=== PATIENT | female | born 1985 | race Caucasian/White ===

== ENCOUNTER 2017-04-12 04:07 | Inpatient (IN) | payer BC ==
[2017-04-12] MEDS ORDERED: Oxytocin/0.9 % Sodium Chloride 30 UNIT/500 ML BAG ONE (04:31)
[2017-04-12] MEDS ORDERED: Lidocaine 1% 50 ML MDV ONE (04:32)
[2017-04-12] MEDS ORDERED: Clindamycin Phosphate in D5W 50 ML IV ONE (04:32)
[2017-04-12] MEDS ORDERED: Lidocaine 1% 50 ML MDV INJECT PRN (04:35)
[2017-04-12] MEDS ORDERED: Butorphanol 1 MG/ML SDV IVPUSH PRN (04:35)
[2017-04-12] MEDS ORDERED: Water For Irrigation,Sterile 1,000 ML Container IRR PRN (04:35)
[2017-04-12] MEDS ORDERED: Methylergonovine 0.2 MG/1 ML Amp IM PRN (04:35)
[2017-04-12] MEDS ORDERED: Misoprostol 200 MCG Tab PO PRN (04:35)
[2017-04-12] MEDS ORDERED: Nalbuphine 10 MG/1 ML Vial IVPUSH PRN (04:35)
[2017-04-12] MEDS ORDERED: Sodium Chloride 0.9% 10 ML Syringe FLUSH PRN (04:35)
[2017-04-12] MEDS ORDERED: Carboprost Tromethamine 250 MCG/1 ML Amp IM PRN (04:35)
[2017-04-12] MEDS ORDERED: Sodium Chloride 0.9% 2.5 ML Syringe FLUSH PRN (04:35)
[2017-04-12] MEDS ORDERED: Clindamycin Phosphate in D5W 900 MG in Premix Bag 1 BAG IV ONE ×2 (04:39)
[2017-04-12] MEDS ORDERED: Oxytocin/0.9 % Sodium Chloride 30 UNIT/500 ML BAG IV SCH (04:45)
[2017-04-12] MEDS ORDERED: Lactated Ringers 1,000 ML IV SCH (04:45)
[2017-04-12] MEDS ORDERED: oxyCODONE 5 MG Tab PO PRN (05:25)
[2017-04-12] MEDS ORDERED: Witch Hazel Medicated Pads 40/Jar TOP PRN (05:25)
[2017-04-12] MEDS ORDERED: Bisacodyl 10 MG Supp RECTAL PRN (05:25)
[2017-04-12] MEDS ORDERED: Acetaminophen 500 MG Tab PO PRN (05:25)
[2017-04-12] MEDS ORDERED: Benzocaine/Menthol 20%-0.5% Spray 78 GM Cannister TOP PRN (05:25)
[2017-04-12] MEDS ORDERED: Docusate Sodium 100 MG Cap PO PRN (05:25)
[2017-04-12] MEDS ORDERED: Lanolin 100% Cream 7 GM Tube TOP PRN (05:25)
--- NOTE | 2017-04-12 06:12 | OR ---
SURGEON: Susan Solo M.D. DATE OF PROCEDURE: 04/12/2017 PREOPERATIVE DIAGNOSIS: 40 and 4/7th week intrauterine , active spontaneous labor, group B strep positive. POSTOPERATIVE DIAGNOSIS: 40 and 4/7th week intrauterine , active spontaneous labor, group B strep positive. PROCEDURE: Term spontaneous vaginal delivery. ANESTHESIA: Pudendal. ESTIMATED BLOOD LOSS: Less than 300 mL. FINDINGS: Liveborn female, scores 8 and 9, weight is pending at the time of dictation. COMPLICATIONS: None known. DISPOSITION: Stable to recovery. Mother and baby are in stable in LDRP. BRIEF HISTORY: This is a 31-year-old female. She is -0-0-1. She presents at 40 and 4/7th weeks' gestation in active spontaneous labor with onset of labor between 2:00 and 3:00 a.m. She arrived to Labor and Delivery 8 cm dilated with urge to push. She did receive a single dose of clindamycin as she is allergic to ampicillin and this was very shortly prior to the baby being born. DESCRIPTION OF PROCEDURE: After consent was obtained, the perineum was cleaned and pudendal block was performed utilizing 10 mL of 1% lidocaine, a centimeter medial and inferior to the spinous process on the right and the left. There was good perineal pain relief with this. She pushed over 2 contractions to a 5+ station, at which time the head was delivered spontaneously and atraumatically over the perineum with support, with subsequent delivery of the infant's shoulders and body without any difficulty. The infant was bulb suctioned by nose and mouth, and the infant was handed to the mother in the presence of the nurse attending delivery. The infant was a liveborn female, scores 8 and 9. After the cord had ceased to pulsate, it was doubly clamped and cut. Cord blood was collected for cord ABGs as well as routine cord blood sampling. Pitocin was initiated after delivery of the infant to assist with delivery of the placenta, which was delivered spontaneously, Schultze intact, with 3 vessels. Upon inspection of the pelvis and perineum, there were no periurethral vaginal sidewall, cervical, or rectal lacerations. There was a second-degree perineal laceration. This was repaired using a running lock suture of 2-0 Caprosyn for the vaginal mucosa, a deep running suture along the perineum using the same running suture and a subcuticular suture of the same for the skin. Final sponge, needle, and instrument counts were reported as correct. There were no known complications. Mother and baby are in LDRP in good condition. ERICK YOUNG /[id number]
[2017-04-12] MEDS: Ibuprofen 800 MG Tab PO PRN ×2 (11:12→18:00)
[2017-04-13] MEDS: Ibuprofen 800 MG Tab PO PRN (07:04)
--- NOTE | 2017-04-13 07:23 | PCM.PNPP ---
- General Info Date of Service: 04/13/17 Functional Status: Reports: Pain Controlled, Tolerating Diet, Ambulating, Urinating - Review of Systems General: Denies: Fever, Weakness Pulmonary: Denies: Shortness of Breath Cardiovascular: Denies: Chest Pain, Palpitations, Lightheadedness Gastrointestinal: Denies: Nausea, Vomiting Genitourinary: Denies: Flank Pain Neurological: Reports: No Symptoms Psychiatric: Reports: No Symptoms - General Info Date of Service: 04/13/17 - Patient Data Vital Signs - Most Recent: Last Vital Signs Temp 36.3 C 04/13/17 04:00 Pulse 66 04/13/17 04:00 Resp 14 04/13/17 04:00 BP 96/62 04/13/17 04:00 Pulse Ox 97 04/13/17 04:00 Weight - Most Recent: 65.771 kg Lab Results - Last 24 Hours: Laboratory Results - last 24 hr 04/13/17 Range/Units 05:27 Hgb 12.2 (12.0-16.0) g/dL Hct 36.3 (36.0-46.0) % Med Orders - Current: Current Medications Acetaminophen (Tylenol Extra Strength) 1,000 mg PO Q4H PRN PRN Reason: Pain Benzocaine/Menthol (Dermoplast Pain Relief 20%-0.5% [place]) 78 gm TOP ASDIRECTED PRN PRN Reason: Perineal Comfort Measure Last Admin: 04/12/17 08:37 Dose: 1 canister Bisacodyl (Dulcolax) 10 mg RECTAL .ONCE PRN PRN Reason: Constipation Docusate Sodium (Colace) 100 mg PO BID PRN PRN Reason: Constipation Last Admin: 04/12/17 19:58 Dose: 100 mg Emollient Ointment (Lansinoh Hpa) 0 gm TOP ASDIRECTED PRN PRN Reason: Sore Nipples Last Admin: 04/12/17 08:37 Dose: 1 tube Ibuprofen (Motrin) 800 mg PO Q6H PRN PRN Reason: Pain Last Admin: 04/13/17 07:04 Dose: 800 mg Oxycodone HCl (Oxycodone) 5 mg PO Q2H PRN PRN Reason: Pain Last Admin: 04/12/17 19:58 Dose: 5 mg Witch Grace (Tucks) 1 pad TOP ASDIRECTED PRN PRN Reason: comfort care Last Admin: 04/12/17 08:38 Dose: 1 tub Discontinued Medications Butorphanol Tartrate (Stadol) 1 mg IVPUSH Q1H PRN PRN Reason: Pain Carboprost Tromethamine (Hemabate Ds) 250 mcg IM ASDIRECTED PRN PRN Reason: Post Hemorrhage Oxytocin/Sodium Chloride (Oxytocin 30 Unit/500 Ml-Ns) Confirm Administered Dose 30 unit in 500 mls @ as directed .ROUTE .STK-MED ONE Stop: 04/12/17 04:32 Last Admin: 04/12/17 23:15 Dose: Not Given Clindamycin Phosphate (Cleocin In D5w) Confirm Administered Dose 50 mls @ as directed IV .STK-MED ONE Stop: 04/12/17 04:33 Last Admin: 04/12/17 23:15 Dose: Not Given Lactated Ringer's (Ringers, Lactated) 1,000 mls @ 150 mls/hr IV ASDIRECTED [place] Last Admin: 04/12/17 04:20 Dose: 150 mls/hr Oxytocin/Sodium Chloride (Oxytocin 30 Unit/500 Ml-Ns) 30 unit in 500 mls @ 999 mls/hr IV TITRATE [facility] Last Admin: 04/12/17 04:42 Dose: 999 mls/hr Clindamycin Phosphate 900 mg/ (Premix) 50 mls @ 100 mls/hr IV ONETIME ONE Stop: 04/12/17 05:08 Last Admin: 04/12/17 04:35 Dose: 100 mls/hr Lidocaine HCl (Xylocaine 1%) Confirm Administered Dose 50 ml .ROUTE .STK-MED ONE Stop: 04/12/17 04:33 Last Admin: 04/12/17 05:18 Dose: 50 ml Lidocaine HCl (Xylocaine 1%) 50 ml INJECT .ONCE PRN PRN Reason: Laceration repair Methylergonovine Maleate (Methergine) 0.2 mg IM ASDIRECTED PRN PRN Reason: Post Hemorrhage Misoprostol (Cytotec) 200 mcg PO .ONCE PRN PRN Reason: Post Hemorrhage Nalbuphine HCl (Nubain) 10 mg IVPUSH Q1H PRN PRN Reason: Pain (severe 7-10) Sodium Chloride (Saline Flush) 10 ml FLUSH ASDIRECTED PRN PRN Reason: Keep Vein Open Sodium Chloride (Saline Flush) 2.5 ml FLUSH ASDIRECTED PRN PRN Reason: Keep Vein Open Sterile Water (Sterile Water For Irrigation) 1,000 ml IRR ASDIRECTED PRN PRN Reason: delivery Last Admin: 04/12/17 04:56 Dose: 1,000 ml - Interaction Disposition, : in Room with Family Interaction: Holding Infant Infant Feeding: Breastfed ; Nursed Well Support Person: - Recovery Exam Fundal Tone: Firm Fundal Level: At Umbilicus Fundal Placement: Midline Lochia Amount: Small Lochia Color: Rubra/Red Perineum Description: Other (see below) Other Perinuem Description: 2nd degree laceration Episiotomy/Laceration: Approximated Bladder Status: Voiding Urinary Elimination: Voided - Exam General: Alert, Oriented Lungs: Normal Respiratory Effort Cardiovascular: Regular Rate, Regular Rhythm GI/Abdominal Exam: Normal Bowel Sounds, Soft Extremities: Pedal Edema (1+) Skin: Warm, Dry Psy/Mental Status: Alert, Normal Affect - Problem List & Annotations (1) Vaginal delivery SNOMED Code(s): 894806604 Code(s): O80 - ENCOUNTER FOR FULL-TERM UNCOMPLICATED DELIVERY Status: Acute Current Visit: No - Problem List Review Problem List Initiated/Reviewed/Updated: Yes - My Orders Last 24 Hours: My Active Orders 04/13/17 07:21 Ready for Discharge [RC] PER UNIT ROUTINE - Assessment Assessment:: PPD 1 status post - Plan Plan:: Patient is feeling well overall, discharge to home today. Discharge instructions reviewed. Infection and bleeding warnings reviewed. Follow up at [facility] 6 weeks.
[2017-04-13 07:55] VITALS: BP 106/57
== END 2017-04-13 11:10 | disposition home or self-care (01) | DRG 560 ==
LOC: MW.OBCHECK 04:07 → MW.OB 04:11 → MW.OBCHECK 04:35 → MW.OB 04:35 → OBSVTOIN 04:42
PROVIDERS: ADMIT Obstetrics & Gynecology; ATTEND Obstetrics & Gynecology
PROC: 10E0XZZ Delivery of Products of Conception, External Approach (ICD-10-PCS; principal; 2017-04-12)
PROC: 0KQM0ZZ Repair Perineum Muscle, Open Approach (ICD-10-PCS; 2017-04-12)
PROC: 3E0R3BZ Introduction of Anesthetic Agent into Spinal Canal, Percutaneous Approach (ICD-10-PCS; 2017-04-12)
DX: O48.0 Post-term pregnancy (principal); Z3A.41 41 weeks gestation of pregnancy; Z37.0 Single live birth; O99.824 Streptococcus B carrier state complicating childbirth; Z88.1 Allergy status to other antibiotic agents; O70.1 Second degree perineal laceration during delivery
CPT/HCPCS: 36415; 59025; 59409; 85014; 85018; 85027; 86850; 86900; 86901; A9270-GY; J2590; J7120